=== PATIENT | male | born 1940 | race African-American/Black ===

== ENCOUNTER 2016-11-02 16:50 | Observation (INO) | payer MEDICARE, OTHER ==
[~2016-11-02] VITALS: Ht 170.2 cm; Wt 75.6 kg
[~2016-11-02 16:50] MED LIST: ATOR80TA PO; CHOL200047 PO; FLUT9.9S NS; HYDR-3825 PO; HYG25 PO; LOSA50TA37 PO; METO50TA3 PO; NITR0.4T SL; OMEP20TA86 PO; OXYC10TA8 PO; POTA10CA42 PO; PROC-4 PO; WARF1TAB6 PO; WARF4TAB6 PO
--- NOTE | 2016-11-02 17:05 | NUR ---
Admission Pt admitted to [facility] rm 3012, directly from [facility] by wheelchair. Pt is A/Ox3. No complains of pain, chest discomfrt, N/V, lightheaded or dizzy. Pt has home infusion pump infusing 5FU continuously x 46 hrs, in R upper chest port, all lines are open and are to remain so. Pt able to transfer self to from to to bed, SBA for safety. Oriented to room and call light.
[2016-11-02 18:10] VITALS: BP 165/90; PULSE 64; RESP 18; O2SAT 100
[2016-11-02] MEDS ORDERED: Polyethylene Glycol (PEG) 17 Gm Powder PO PRN (18:50)
[2016-11-02] MEDS ORDERED: Alum-Mag Hydrox-Simeth 30 mL Suspension PO PRN (18:50)
[2016-11-02] MEDS ORDERED: Ondansetron 2 mg/mL 2 mL Inj IVPUSH PRN (18:50)
--- NOTE | 2016-11-02 19:09 | PCM.HPMED ---
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 He is a patient of Dr. Calvin's who is in the office to get chemotherapy today and had a bright red bowel movement. I was called for direct admission. Patient was stable according to Dr. Calvin. He also requested that I contact general surgery regarding consultation on this patient. Which I did do and it was Dr. Erwin. Per oncology his hematocrits earlier in the day was 12 and repeat after his bloody bowel movement was 10.8. Patient denies any abdominal pain. He denies any chest pain shortness of breath or lightheadedness. He has been treated with FOLFIRI with Avastin that he had disease progression and was started standard dose of the irinotecan. And taken did have his CEA come down from 722 07/31/2020 but is now starting to increase again. Review of Systems: All other review of systems are reviewed and are negative except for as in history of present illness Allergies Coded Allergies: hydrocortisone (Verified Allergy, Intermediate, rash when injected, 05/27/15 ) pramoxine (Verified Allergy, Intermediate, rash when injected, 05/27/15) Home Medications Pending at the time of this dictation [facility] Metastatic colon cancer History of colonic resection approximately 2 years ago for cancer Family History Reviewed and negative for cardiovascular disease Social History Hx Alcohol Use: No Hx Substance Use: No Hx Tobacco Use: Yes Smoking Status: Never Smoker Living Arrangement: with Family Exam Vital Signs Vital Sign - Last Date Time Temp Pulse Resp B/P Pulse Ox O2 Delivery O2 Flow Rate FiO2 11/02/16 18:10 36.4 64 18 165/90 100 Room Air Exam Constitutional: Elderly male in no acute distress Head: Normocephalic atraumatic Neck: No adenopathy Chest: Clear to auscultation Cor: Regular rate and rhythm S1-S2 Abdomen: Soft nontender bowel sounds present Extremities: No pedal edema Skin: No rashes Psych: Mood and affect are appropriate Neuro: Alert and oriented 3, motor and sensory are intact bilaterally Assessment & Plan # Episode of hematochezia, acute, present on admission Gen. surgery notified as requested by Dr. Calvin Check serial hematocrits IV fluid hydration # Metastatic colon cancer, chronic, present on admission Further recommendations per oncology # DVT prophylaxis We will use SCDs and avoid subcutaneous anticoagulation given possible GI bleed lower # CODE STATUS patient is full code Resuscitation Status: CPR: Attempt Resuscitation Time spent 60 minutes Tamar Main MD Nov 02, 2016 19:09
[2016-11-02] MEDS ORDERED: OXYC5TAB72 PO (20:18)
[2016-11-02] MEDS ORDERED: METO-272 PO (20:18)
[2016-11-02] MEDS ORDERED: OXYC10TA69 PO (20:18)
[2016-11-02 22:22] VITALS: BP 171/87; PULSE 72; RESP 16; O2SAT 99
[2016-11-03] VITALS (10 sets, daily range): BP systolic 110–173; BP diastolic 65–88; PULSE 52–75; RESP 16–18; O2SAT 95–100
[2016-11-03] MEDS: 0.9% Sodium Chloride 1,000 ML IV SCH ×5 (01:21→18:39)
--- NOTE | 2016-11-03 05:24 | NUR ---
Uneventful Night: Pt rested through the night with no complaints of pain or discomfort. Pt did not have a BM. Denies n/v at this time. Call light within reach, using appropriately. Pleasant and cooperative with care.
[2016-11-03 06:20] LABS: BASOPHILS % (AUTO) 0.4 % (0-3); EOSINOPHILS % (AUTO) 0 % (0-5); MONOCYTES % (AUTO) 23.5 % (4-12); Mean Corpuscular Volume 84.8 fL (81-100); NEUTROPHILS % (AUTO) 51.5 % (40-74); Platelet Count 181 bil/L (150-400)
[2016-11-03 14:01] LABS: APPEARANCE,URINE HAZY (CLEAR,HAZY); COLOR,URINE YELLOW (YELLOW); OCCULT BLOOD,URINE TRACE (NEGATIVE); PH,URINE 7.5 (5.0-8.0)
[2016-11-03] MEDS ORDERED: Sodium Biphos-Phos 133 mL Enema RECTAL ONE ×2 (14:30→15:00)
--- NOTE | 2016-11-03 15:26 | NUR ---
NUTRITION ASSESSMENT: ASSESS: 76 YO male admitted for GI bleed. Pt with metastatic colorectal cancer with liver metastases and small lung lesions currently on chemo. Pt had colon resection approx. 2 years ago. PMHx: Metastatic colorectal cancer with liver metastases and small lung lesions currently on chemo. LABS: Reviewed. Cr 0.60, Alb 2.8, Alk Phos 444 MEDS: Reviewed. GI: No BM reported yet. CURRENT WT: 75 kg. DIET: NPO EST. NEEDS: 6944-7326 kcals (25-30 kcals/kg BW), 90-115 g protein (1.2-1.5 g/kg BW) NUTRITION DIAGNOSIS: 1.) Altered GI function related to alteration in GI tract structure/function as evidenced by previous colon resection and current GI bleed. NUTRITION INTERVENTION: 1.)Will continue to await timely advancement of diet. MONITOR / EVAL: Diet advancement / tolerance, labs, nutritional status. Follow per moderate nutritional risk guidelines.
--- NOTE | 2016-11-03 15:55 | NUR ---
Social Work: Brief Note Data: Pt is a 76 y/o male admitted for colon cancer. Pt's PCP is [facility]. Pt's insurance is Medicare with [employer] for life supp. EMR reviewed. PANEL MONITOR attempted to meet with pt, pt meeting with nursing staff, not appropriate for assessment at this time. PANEL MONITOR will attempt initial assessment at a later time. PANEL MONITOR will continue to follow. Assessment: Pt who is independent at baseline. Plan: PANEL MONITOR will attempt initial assessment at a later time. PANEL MONITOR will continue to follow. ARLET Gallardo
--- NOTE | 2016-11-03 16:38 | PCM.PNMED ---
Subjective Date of Service Nov 03, 2016 Subjective denies any new issues/complaints. no n/v. Exam Vital Signs Vital Sign - Last Date Time Temp Pulse Resp B/P Pulse Ox O2 Delivery O2 Flow Rate FiO2 11/03/16 14:31 36.9 60 18 159/84 99 Room Air Intake and Output 11/02/16 11/02/16 11/03/16 Cumulative From/Thru 15:00 23:00 07:00 11/02/16 18:09 - 11/03/16 06:21 Intake Total 988 ml 988 ml Output Total 300 ml 300 ml Balance 688 ml 688 ml Intake Oral 0 ml 0 ml IV Total 988 ml 988 ml Output Urine Total 300 ml 300 ml General: Alert, Cooperative, No Acute Distress Head: Normal Eyes: Scleral Anicteric Mouth: Mucous Membr Moist/Elliott Neck: Supple Chest & Lungs: Chest Wall Normal, Clear to auscultation & percussion Cardiovascular: Regular Rate/Rhythm Abdomen: Non-tender, Non-distended, Normoactive bowel tones, Soft Extremities: No cyanosis/clubbing/edma bilat Neurological: Grossly Neurologically Intact, Normal Speech IVs and Medications Medications Reviewed: Medications were reviewed in detail Lab and Diagnostics Result Diagram: 11/03/16 0550 11/03/16 0758 Assessment & Plan 76 year old male with 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 Rico) and per recommendation have now consulted GI. will f/u w/ recs - h/h remaining stable since admission - continue to check serial hematocrits for now. # Metastatic colon cancer, chronic, present on admission - will f/u w/ further recommendations per oncology # Atrial flutter (chronic) s/p pacemaker placement. rate controlled - f/u on tele # Essential Hypertension, chronic. poorly controlled - resume home BP meds and f/u Dispo: 1-2 days VTE Mechanical Devices: Intermittant Pneumatic CD Resuscitation Status: CPR: Attempt Resuscitation Time spent 35 min Freddie England Nov 03, 2016 16:38
[2016-11-03] MEDS ORDERED: HYDROcodone-APAP 7.5-325 mg Tablet PO PRN (16:45)
--- NOTE | 2016-11-03 17:05 | NUR ---
Case Management: KENA explained to patient at 1610, all questions answered. Signed original in chart, copy given to patient. Pt refused the Medicare Drug information sheet. Treva Reeves RN
[2016-11-03] MEDS ORDERED: fentaNYL-PF 50 mCg/mL 2 mL Inj IVPUSH PRN (17:30)
--- NOTE | 2016-11-03 18:03 | NUR ---
spiritual care: pt request conversational visit. pt awaiting surgery. connected to [facility]. briefly reflected on his sense of relief that "this was caught and there's a plan" pt's dtr in room. pt appreciative of spiritual care/prayer.
--- NOTE | 2016-11-03 18:27 | NUR ---
Endoscopy He went to endoscopy from [facility] 3012 about 182. Prior to him going he received to enemas per Dr. Del Castillo's orders. He transferred with stand by assist from the bed to the [facility]. IV saline locked. Report given to Haider from Endoscopy. geothermal hvac technician notified.
--- NOTE | 2016-11-03 18:46 | CCS NOTE ---
[facility] [address], [address] [address] MEDICAL ONCOLOGY OFFICE NOTE PATIENT: BLANKA NUÑEZ : 1940 MR#: [id number] DATE: 11/02/2016 JOB ID: [id number] DATE: 11/03/2016 HISTORY OF PRESENT ILLNESS: The patient was admitted to our clinical yesterday. For further details, please refer to my office note as well as the addendum note of yesterday. He was receiving his next cycle of chemotherapy and during the infusion had a fairly large size of hematochezia in the bathroom and was admitted for observation and evaluation because of the size of the bright red blood loss as well as drop of hemoglobin. He is currently not on anticoagulation. Further details summarized in my notes of yesterday. His infusional 5-FU that runs over a continuous pump for 48 hours is ongoing and was started yesterday early afternoon. He has had another episode of hematochezia apparently in the hospital. His hemoglobin, however, has not much changed and has remained around 10.5. White count is 2.9, hemoglobin 10.6, platelets 181. Chemistry shows no significant abnormalities. EXAMINATION: On exam, his abdomen is soft. No peripheral edema. ASSESSMENT: A 76-year-old gentleman admitted through our clinic yesterday because of hematochezia. Further details are summarized in my office note and addendum note of yesterday. I spoke with Dr. Rico of Surgery. I suspect that the reason of his bleeding is likely for nonmalignant causes such as hemorrhoids or diverticula, but endoscopic evaluation is needed. Dr. Rico preferred Gastroenterology to perform the endoscopy and has contacted GI accordingly. In fact, the patient is scheduled to have endoscopic evaluation later this evening and has had some enemas. He has ongoing 5-FU infusional pump that was started yesterday early afternoon as part of his current cycle of chemotherapy and runs over approximately 48 hours which will go until tomorrow afternoon. The pump can be then removed. Usually this is performed through [facility] that takes care of it as an outpatient at the patient's home. With any questions, do not hesitate to contact our pharmacist at the Cancer Center for further directions. He can continue the 5-FU until the pump has completed. He was scheduled to receive Neupogen injection on Tuesday as an outpatient which can be given here if he is still in the hospital. I appreciate Surgery and Gastroenterology support in his care as well as the hospitalist team.
[2016-11-03] MEDS: oxyCODONE ER 10 mg ER12 Tablet PO SCH (21:13)
[2016-11-03] MEDS: MeTOProlol XL 50 mg ER24 Tablet PO SCH (21:13)
--- NOTE | 2016-11-03 22:55 | CONS ---
[address] [address] CONSULTATION REPORT PATIENT: BLANKA NUÑEZ : 1940 MR#: [id number] ADMIT: 11/02/2016 JOB ID: [id number] DATE OF SERVICE: 11/03/2016 REQUESTING PROVIDER: Freddie England MD REASON FOR CONSULTATION: Hematochezia. HISTORY OF PRESENT ILLNESS: This is a 76-year-old male with metastatic colon cancer on active chemotherapy who experienced an episode of bright red blood per rectum yesterday. This was moderate volume and he was sent to the hospital for further evaluation. It sounds like he had been dealing with some constipation up until that point which was relatively new for him. His last colonoscopy was by Dr. Reyes in 2014 and I reviewed that report. ALLERGIES: 1. HYDROCORTISONE. 2. PRAMOXINE. MEDICATIONS: The patient is takin. Atorvastatin. 2. Losartan. 3. Metoprolol. 4. P.r.n. nitro. 5. Vicodin. 6. Scheduled oxycodone. 7. Potassium chloride. 8. Chlorthalidone. 9. Flonase. 10. Compazine. 11. Vitamin D3. He has not been on his Coumadin since mid September. PAST MEDICAL HISTORY: Metastatic colon cancer with a resection in 2013, hyperlipidemia and hypertension. FAMILY HISTORY: Noncontributory. SOCIAL HISTORY: He is not using alcohol at present. REVIEW OF SYSTEMS: Patient was given a couple of Fleets enemas this afternoon in advance of the procedure. He had a small amount of blood with the first one and then no evidence of any blood with the second enema. PHYSICAL EXAMINATION: Vital signs are stable. Blood pressure a little bit elevated this afternoon 159/84, pulse 60, breathing 18, temperature 36.9, 99% on room air. The patient was in no distress. Alert, oriented, appropriate, cooperative, conversational. Lungs are clear bilaterally. Heart regular. No significant peripheral edema. Abdomen was soft, nontender. LABORATORY DATA: Hemoglobin was 10.6 yesterday. It has remained stable. White count is 2.9 with 51.5% neutrophils. Platelets were 181. Metabolic panel reveals albumin 2.8, protein 7.3, alk phos 444, ALT 39, AST 61, bilirubin 1.1, calcium 9.0, glucose 77, creatinine 0.6. Sodium 139, potassium 4.6, chloride 100, bicarb 24, BUN 17. ASSESSMENT AND RECOMMENDATION: A 76-year-old male with an acute episode of bright red blood per rectum. This occurred in the context of more recent constipation and has since resolved. He has not had a significant decrease in his hemoglobin over the course of admission. It sounds like he was evaluated by Dr. Rico, but I have not seen the note on that score. A hemorrhoidal source is certainly suspected. Flexible sigmoidoscopy was discussed with the patient. The risks of the procedure were reviewed. He wished to proceed. Please see the endoscopy note for further details.
--- NOTE | 2016-11-03 23:30 | ENDO ---
[address] [address] ENDOSCOPY PROCEDURE PATIENT: BLANKA NUÑEZ : 1940 MR#: [id number] ADMIT: 11/02/2016 JOB ID: [id number] DATE: 11/03/2016 PROCEDURE: Colonoscopy. INDICATIONS: A 76-year-old male with chronically elevated CEA and metastatic colon cancer status post right hemicolectomy. Colonoscopy is up to date as of 2014. He had a recent episode of bright red blood, moderate volume, following an element of constipation. The bleeding appears to have had spontaneously ceased. Endoscopic interrogation is pursued. EQUIPMENT: Parsely 180 AL. SEDATION: None. BOWEL PREPARATION: Acceptable. PROCEDURE INFORMATION: After the risks and benefits were explained, written and verbal informed consent was obtained. The patient was brought into the endoscopy suite and placed into the left lateral decubitus position. The patient elected to pursue the procedure without sedation. Digital rectal examination was accomplished. There was no evidence of any external hemorrhoids. I could palpate internal hemorrhoids. These were nonthrombosed and not painful. The scope was introduced into the rectum and advanced under direct visualization all the way to the right hemicolectomy anastomosis. The scope was slowly withdrawn to carefully examine the mucosa for any defects or lesions. Multiple direct views were made through the dentate line for exclusion of pathology. The colon was decompressed, the scope removed from the patient who tolerated the procedure quite well. FINDINGS: When we 1st arrived in the rectum, there was a small blood clot just proximal to the dentate line. I initially thought this was the source, but then it simply irrigated away with a single spray, and I did not see any obvious source of blood loss in the rectal mucosa. Throughout the colonic mucosa, I did not appreciate any significant polyps or mass lesions, no vascular pathology, no macroscopic colitis. The anastomosis had some brown and green retained stool debris. The patient had a surprisingly decent prep considering he only had two enemas this afternoon. There was a small amount of green stool debris that was mostly liquid easily suctioned during the procedure. When we arrived back in the rectum at the end of the case, we had a better look at the hemorrhoids and they were indeed moderately to fully engorged with some overlying erythema and slight vascularity in places. However, I did not see an obvious platelet plug or nipple sign. I could not see the obvious bleeding focus of recent bleeding but based on the size of these hemorrhoids, I suspect them to be the culprit. ENDOSCOPIC DIAGNOSES: 1. No evidence of any ongoing active gastrointestinal bleeding. 2. Large, engorged internal hemorrhoids. 3. Normal-appearing right hemicolectomy anastomosis. RECOMMENDATIONS: 1. The patient is encouraged to utilize a regular fiber supplement to keep stool soft and allow him to maintain daily full evacuation. I typically recommend 2 tablespoons of ground flaxseed fiber mixed with 8 ounces of water or juice once or twice daily. I have additionally recommended he engage in some warm Epsom salt baths each evening perhaps this whole week. 2. Should recurrent bleeding occur in spite of conservative therapy, he may require surgical intervention by Dr. Rico for banding.
--- NOTE | 2016-11-03 23:42 | NUR ---
Back on Unit Pt returned from Endo. VSS. Pt requested Jello and chicken broth, tolerated. Pt in bed resting with eyes closed. Will continue to monitor.
[2016-11-04 01:03] VITALS: BP 153/83; PULSE 66; RESP 18; O2SAT 97
[2016-11-04 08:00] VITALS: PULSE 87
[2016-11-04 08:04] LABS: Mean Corpuscular Hemoglobin 27.7 pg (27.0-35.0); Mean Corpuscular Volume 84.3 fL (81-100)
--- NOTE | 2016-11-04 09:07 | NUR ---
Social Work: Initial Assessment Data: Pt is a 76 y/o male admitted for colon cancer. Pt's PCP is [facility]. Pt's Insurance is Medicare with for life supp. Readmit score not listed. EMR reviewed. STRATEGIC BUSINESS DEVELOPMENT met with pt at bedside, role explained. Pt states that he lives in [place] in a two story home with his where he uses no DME. Pt states he has no hx of HH or SNF, no LTC or VA benefits, and is not a caregiver. Pt states his is his DPOA, STRATEGIC BUSINESS DEVELOPMENT requested a copy for hospital. STRATEGIC BUSINESS DEVELOPMENT will continue to follow for possible HH or SNF need. Assessment: Pt who is independent at baseline. Plan: Pt will likely d/c home, possibly with HH, STRATEGIC BUSINESS DEVELOPMENT will continue to follow for possible HH or SNF need. ARLET rojo continue to follow. ARLET Gallardo Addendum: 11/04/16 at 0910 by KIESHA DUTTON Amended: Links added.
[2016-11-04] MEDS: oxyCODONE ER 10 mg ER12 Tablet PO SCH (09:26)
[2016-11-04 09:44] VITALS: BP 136/80; PULSE 67; RESP 21; O2SAT 100
[2016-11-04] MEDS ORDERED: Potassium Chloride 20 mEq SR Tablet PO ONE (10:10)
--- NOTE | 2016-11-04 10:42 | NUR ---
Social Work: Discharge Data: Pt is on day 2 of hospitalization. EMR reviewed. Pt discussed in rounds. MD states pt has no HH need at this time. D/C orders are in. No further d/c planning needs anticipated at this time. Assessment: Pt who is independent at baseline. Plan: Pt will d/c home today via POV. No further d/c planning needs anticipated at this time. ARLET Gallardo
--- NOTE | 2016-11-04 11:48 | PCM.DIMED ---
Discharge Instructions Date of Service Nov 04, 2016 Dates of Hospitalization Nov 02, 2016 at 17:25 Discharge Diagnosis Discharge Diagnosis # Acute hematochezia, present on admission. Resolved - Likely due to "large, engorged internal hemorrhoids" noted on endoscopy # Metastatic colon cancer, chronic, present on admission. # Atrial flutter (chronic) post pacemaker placement. rate controlled # Essential Hypertension, chronic. Diet Low fat, Low Sodium, Heart Healthy Activity No restrictions Call your provider Fever or Chills, Shortness of breath, Bleeding, Chest pain Patient Instructions Seek immediate medical attention if any new or worsening signs or symptoms occur. Utilize a regular fiber supplement to keep stool soft and allow to maintain daily full evacuation. - Recommend 2 tablespoons of ground flaxseed fiber mixed with 8 ounces of water or juice once or twice daily. - Warm Epsom salt baths each evening perhaps this whole week. Should recurrent bleeding occur in spite of conservative therapy, may require surgical intervention for banding. Follow-up plan 1. Followup with oncology (Dr. Calvin) tomorrow as previously planned 2. Followup with primary care provider in 7-10 days Follow-up Provider: Quintin Weston MD Provider: [facility] Freddie Brand Nov 04, 2016 11:48
[2016-11-04] MEDS ORDERED: 0.9% Sodium Chloride 250 ML IV SCH (12:13)
[2016-11-04] MEDS ORDERED: Sodium Chloride LOK Flush 10 mL Syringe IVFLUSH PRN ×2 (12:15)
[2016-11-04] MEDS: MeTOProlol XL 50 mg ER24 Tablet PO SCH (12:24)
--- NOTE | 2016-11-04 13:00 | NUR ---
pt discharged home with daughter. No rectal bleeding today. VSS. Will have follow up with PCP and surgeon only as needed. no new RX.
--- NOTE | 2016-11-04 19:50 | PCM.DC.MED ---
Discharge Summary Date of Service Nov 04, 2016 Dates of Hospitalization Date of Hospital Admission Nov 02, 2016 at 17:25 Date of Discharge: Nov 04, 2016 Providers: Admitting Physician: Tamar Main MD Primary Care Physician: Juan Tavarez Attending Physician: Tamar Main MD Diagnosis at Time of Discharge Diagnosis at Time of Discharge # Acute hematochezia, present on admission. Resolved - Likely due to "large, engorged internal hemorrhoids" noted on endoscopy # Metastatic colon cancer, chronic, present on admission. # Atrial flutter (chronic) post pacemaker placement. rate controlled # Essential Hypertension, chronic. Consultations 1. Surgery 2. GI 3. Oncology Procedures Invasive Procedures DATE: 11/03/2016 PROCEDURE: Colonoscopy. INDICATIONS: A 76-year-old male with chronically elevated CEA and metastatic colon cancer status post right hemicolectomy. Colonoscopy is up to date as of 2014. He had a recent episode of bright red blood, moderate volume, following an element of constipation. The bleeding appears to have had spontaneously ceased. Endoscopic interrogation is pursued. EQUIPMENT: [employer] H [address] [place]. SEDATION: None. BOWEL PREPARATION: Acceptable. PROCEDURE INFORMATION: After the risks and benefits were explained, written and verbal informed consent was obtained. The patient was brought into the endoscopy suite and placed into the left lateral decubitus position. The patient elected to pursue the procedure without sedation. Digital rectal examination was accomplished. There was no evidence of any external hemorrhoids. I could palpate internal hemorrhoids. These were nonthrombosed and not painful. The scope was introduced into the rectum and advanced under direct visualization all the way to the right hemicolectomy anastomosis. The scope was slowly withdrawn to carefully examine the mucosa for any defects or lesions. Multiple direct views were made through the dentate line for exclusion of pathology. The colon was decompressed, the scope removed from the patient who tolerated the procedure quite well. FINDINGS: When we 1st arrived in the rectum, there was a small blood clot just proximal to the dentate line. I initially thought this was the source, but then it simply irrigated away with a single spray, and I did not see any obvious source of blood loss in the rectal mucosa. Throughout the colonic mucosa, I did not appreciate any significant polyps or mass lesions, no vascular pathology, no macroscopic colitis. The anastomosis had some brown and green retained stool debris. The patient had a surprisingly decent prep considering he only had two enemas this afternoon. There was a small amount of green stool debris that was mostly liquid easily suctioned during the procedure. When we arrived back in the rectum at the end of the case, we had a better look at the hemorrhoids and they were indeed moderately to fully engorged with some overlying erythema and slight vascularity in places. However, I did not see an obvious platelet plug or nipple sign. I could not see the obvious bleeding focus of recent bleeding but based on the size of these hemorrhoids, I suspect them to be the culprit. ENDOSCOPIC DIAGNOSES: 1. No evidence of any ongoing active gastrointestinal bleeding. 2. Large, engorged internal hemorrhoids. 3. Normal-appearing right hemicolectomy anastomosis. RECOMMENDATIONS: 1. The patient is encouraged to utilize a regular fiber supplement to keep stool soft and allow him to maintain daily full evacuation. I typically recommend 2 tablespoons of ground flaxseed fiber mixed with 8 ounces of water or juice once or twice daily. I have additionally recommended he engage in some warm Epsom salt baths each evening perhaps this whole week. 2. Should recurrent bleeding occur in spite of conservative therapy, he may require surgical intervention by Dr. Rico for banding. Rob Del Castillo MD 11/03/16 3832 Report status: Draft Transcribed by: RENETTA 11/03/16 2153 REPORT#: [id number] cc: [facility] ; Quintin Calvin MD; Andres Rico MD; oRb Del Castillo MD Brief History As noted in H&P by Dr. Main: Is a 76-year-old male who has a history of metastatic KRAS mutation positive colorectal carcinoma with liver metastases and small lung lesions are so. He is a patient of Dr. Calvin's who is in the office to get chemotherapy today and had a bright red bowel movement. I was called for direct admission. Patient was stable according to Dr. Cavlin. He also requested that I contact general surgery regarding consultation on this patient. Which I did do and it was Dr. Erwin. Per oncology his hematocrits earlier in the day was 12 and repeat after his bloody bowel movement was 10.8. Patient denies any abdominal pain. He denies any chest pain shortness of breath or lightheadedness. He has been treated with FOLFIRI with Avastin that he had disease progression and was started standard dose of the irinotecan. And taken did have his CEA come down from 722 07/31/2020 but is now starting to increase again. Hospital Course # Acute hematochezia, present on admission. Resolved - Likely due to "large, engorged internal hemorrhoids" noted on endoscopy - discussed with surgery (Dr. Rico) and per recommendation consulted GI. - coloscopy on 11/03/16 - h/h remaining stable since admission - per GI recs c/w conservative care and if reoccur f/u w/ surgery for possible banding # Metastatic colon cancer, chronic, present on admission - will f/u w/ further recommendations per oncology # Atrial flutter (chronic) s/p pacemaker placement. rate controlled # Essential Hypertension, chronic. poorly controlled - resume home BP meds by day of d/c abdomen soft, nt, nd, +bs Exam Vital Signs (Last) Date Time Temp Pulse Resp B/P Pulse Ox O2 Delivery O2 Flow Rate FiO2 11/04/16 09:44 36.8 67 21 136/80 100 Room Air Test 11/03/16 05:50 11/03/16 13:18 11/04/16 07:10 Neutrophils (%) (Auto) 51.5% (40-74) Lymphocytes (%) (Auto) 24.6% (14-46) Monocytes (%) (Auto) 23.5% (4-12) Eosinophils (%) (Auto) 0% (0-5) Basophils (%) (Auto) 0.4% (0-3) Urine Color Yellow (YELLOW) Urine Appearance Hazy (CLEAR,HAZY) Urine pH 7.5 (5.0-8.0) Urine Specific [place] 1.020 (1.003-1.035) Urine Protein Tracemg/dL (NEG,TRACE) Urine Glucose (UA) Negativemg/dL (NEGATIVE) Urine Ketones Negativemg/dL (NEGATIVE) Urine Occult Blood Trace (NEGATIVE) Urine Nitrite Negative (NEGATIVE) Urine Bilirubin Negative (NEGATIVE) Urine Urobilinogen 1.0mg/dL (NORMAL) Urine Leukocyte Esterase Negative (NEGATIVE) Urine RBC 0-2/hpf (0-2) Urine WBC 0-5/hpf (0-5) Urine Epithelial Cells Occasional/hpf (NONE-MOD) Urine Crystals None seen (NONE SEEN) Urine Bacteria Few/hpf (NONE-FEW) Urine Hyaline Casts None/lpf (NONE) Urine Granular Casts None seen (NONE SEEN) Urine Waxy Casts None seen (NONE SEEN) Urine Red Blood Cell Casts None seen (NONE SEEN) Urine White Blood Cell Casts None seen (NONE SEEN) Urine Mucus Present (None Seen) Urine Trichomonas None seen (NONE SEEN) Urine Yeast None (NONE SEEN) Urinalysis Comment None White Blood Count 2.5th/mm3 (3.8-10.1) Red Blood Count 3.43mil/mm3 (4.40-5.80) Hemoglobin 9.5g/dL (13.8-17.2) Hematocrit 28.9% (41.0-50.0) Mean Corpuscular Volume 84.3fL (81-100) Mean Corpuscular Hemoglobin 27.7pg (27.0-35.0) Mean Corpuscular Hemoglobin Concent 32.9% (32.0-37.0) Red Cell Distribution Width 16.3% (12.3-15.4) Platelet Count 202bil/L (150-400) Sodium Level 137mEq/L (134-144) Potassium Level 3.4mEq/L (3.5-5.2) Chloride Level 98mEq/L (97-108) Carbon Dioxide Level 23mmol/L (18-29) Blood Urea Nitrogen 20mg/dL (8-27) Creatinine 0.73mg/dL (0.76-1.27) Estimat Glomerular Filtration Rate 110mL/min (>59) Glucose Level 81mg/dL (60-99) Calcium Level 8.6mg/dL (8.5-10.1) Total Bilirubin 1.9mg/dL (0.0-1.2) Aspartate Amino Transf (AST/SGOT) 72U/L (0-50) Alanine Aminotransferase (ALT/SGPT) 45U/L (0-44) Alkaline Phosphatase 472U/L (25-160) Total Protein 6.7g/dL (6.4-8.4) Albumin 3.0g/dL (3.4-5.0) Discharge Medications Discharge Medications Atorvastatin (Lipitor) 80 Mg Tablet 80 MG PO DAILY (Reported) Chlorthalidone (Chlorthalidone) 25 Mg Tablet 25 MG PO DAILY (Reported) Cholecalciferol (Vitamin D3) (Vitamin D3) 2,000 Unit Capsule 2,000 UNIT PO BID ( Reported) Fluticasone Propionate (Flonase Allergy Relief) 50 Mcg/Actuation [place].susp 9.9 ML NS prn (Reported) Losartan Potassium (Losartan Potassium) 50 Mg Tablet 25 MG PO DAILY (Reported) Metoprolol Succinate ER (Metoprolol Succinate ER) 50 Mg Tab.er.24h 75 MG PO BID (Reported) Oxycodone ER (Oxycontin) 10 Mg Tab.er.12h 10 MG PO BID (Reported) Potassium Chloride (Potassium Chloride) 10 Meq Capsule.er 40 MEQ PO DAILY ( Reported) TAKE WITH FOOD As needed Hydrocodone-Acetaminophen 7.5-325 mg (Hydrocodone-Acetaminophen 7.5-325 mg) 1 Each Tablet 1-2 TABLET PO Q6H PRN PRN For Pain (Reported) Nitroglycerin SL (Nitrostat) 0.4 Mg Tab.subl 0.4 MG SL Q5MIN PRN PRN For Chest Pain (Reported) Prochlorperazine Maleate (Compazine) 10 Mg Tablet 10 MG PO Q4 PRN PRN For Nausea (Reported) oxyCODONE (oxyCODONE) 5 Mg Tablet 10 MG PO Q4 PRN PRN For Pain (Reported) Followup Plan Disposition: Home Follow-up plan 1. Followup with oncology (Dr. Calvin) tomorrow as previously planned 2. Followup with primary care provider in 7-10 days Discharge Diet: Low fat, Low Sodium, Heart Healthy Discharge Activity: No restrictions Patient Instructions Seek immediate medical attention if any new or worsening signs or symptoms occur. Utilize a regular fiber supplement to keep stool soft and allow to maintain daily full evacuation. - Recommend 2 tablespoons of ground flaxseed fiber mixed with 8 ounces of water or juice once or twice daily. - Warm Epsom salt baths each evening perhaps this whole week. Should recurrent bleeding occur in spite of conservative therapy, may require surgical intervention for banding. Follow-up Provider: Quintin Weston MD Provider: JUAN TAVAREZ Time spent 35 min copies to: JUAN TAVAREZ; Quintin Weston MDFreddie Nov 04, 2016 19:50
--- NOTE | 2016-11-05 17:44 | CONS ---
[address] [address] CONSULTATION REPORT PATIENT: BLANKA NUÑEZ : 1940 MR#: [id number] ADMIT: 11/02/2016 JOB ID: [id number] DATE OF SERVICE: 11/04/2016 CHIEF COMPLAINT: A 76-year-old gentleman with bleeding, probably from internal hemorrhoids, seen in consultation at the request of Quintin Calvin MD. 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 Milo Appiah in December 2013. Pathology at that time showed a T3 tumor with 1/25 lymph nodes positive for metastatic cancer. He initially received adjuvant chemotherapy with infusional 5-FU alone. Treatment was discontinued after 10 cycles. A year later he developed metastatic disease to the liver and he was treated with SBRT and radioembolization at [facility]. He was being treated under the guidance of Dr. Calvin with FOLFIRI plus Avastin on an attenuated schedule every three weeks. He was getting his treatment on November 02, 2016 when he had bright red blood per rectum in the toilet prompting him to be admitted to the hospital for evaluation and management. Over the last couple of days in the hospital his bleeding has slowed down and stopped, and he had a colonoscopy by Dr. Del Castillo yesterday without any obvious source of bleeding seen other than hemorrhoids. OTHER MEDICAL PROBLEMS: 1. Hyperlipidemia. 2. Hypertension. 3. Coronary artery disease. 4. Chronic atrial fibrillation. PRIOR OPERATIONS: 1. Dual-chamber pacemaker implantation. 2. Right hemicolectomy. 3. Port-A-Cath placement. MEDICATIONS: 1. Atorvastatin. 2. Losartan. 3. Metoprolol. 4. Nitroglycerin. 5. Vicodin. 6. Oxycodone. 7. Potassium chloride. 8. Chlorthalidone. 9. Flonase. 10. Compazine. 11. Vitamin D3. ALLERGIES: 1. Hydrocortisone. 2. Pramoxine. REVIEW OF SYSTEMS: A 10-point review of systems negative other than the pertinent positives noted in the history of present illness and other medical problems. INVESTIGATIONS: Hemoglobin 9.5, down from 10.6 yesterday. Platelet count 202, white blood cell count 2.5. Bilirubin 1.9, AST 72, ALT 45, alkaline phosphatase 472, albumin 3.0. Colonoscopy November 03, 2016 showed no evidence of ongoing bleeding. Large engorged internal hemorrhoids. Normal-appearing right hemicolectomy anastomosis. PHYSICAL EXAMINATION: A 76-year-old gentleman in no acute distress. BMI 26.1, temperature 36.8, pulse 66, blood pressure 153/83, saturating 97% on room air. Eyes: Normal pupils, conjunctivae. Ears, nose, and throat: Normal external appearance. Respiratory: Normal effort, clear to auscultation. Gastrointestinal: Abdomen is soft. Rectal examination deferred. Neurologic: No gross deficits. Psych: Alert, appropriate. Musculoskeletal: Overall appears weak, but no focal weakness. ASSESSMENT AND PLAN: Internal hemorrhoids. I discussed the pathophysiology and treatment rationale for hemorrhoids and offered a banding of hemorrhoids based on symptoms. Discussed the importance of her avoidance of constipation and straining and encouraged him to use senna as needed. I am happy to see him back in clinic based on his symptoms but he and his daughter Treva are comfortable and plan to not intervene at this point and see him back as needed.
[2016-12-14] MEDS ORDERED: WARF4TAB6 PO (09:19)
[2016-12-14] MEDS ORDERED: OXYC10TA69 PO (09:19)
[2017-01-25] MEDS ORDERED: DOCU250C2 PO (08:56)
== END 2016-11-04 13:28 | disposition home or self-care (01) ==
LOC: MPC 17:25
PROVIDERS: ADMIT Specialist; ATTEND Specialist
DX: K64.8 Other hemorrhoids (principal); K92.1 Melena; C18.0 Malignant neoplasm of cecum; C78.7 Secondary malignant neoplasm of liver and intrahepatic bile duct; I10 Essential (primary) hypertension; I25.10 Atherosclerotic heart disease of native coronary artery without angina pectoris; E78.5 Hyperlipidemia, unspecified; I48.2 Chronic atrial fibrillation; Z92.21 Personal history of antineoplastic chemotherapy; Z95.0 Presence of cardiac pacemaker; Z90.49 Acquired absence of other specified parts of digestive tract
CPT/HCPCS: 36415; 45378; 80053; 81001; 82274; 85014; 85018; 85025; 85027; 96374; 99153; G0378; G0379; G0500; J2405; J7030

== ENCOUNTER 2017-02-25 12:55 | Inpatient (IN) | payer MEDICARE, OTHER ==
[~2017-02-25] VITALS: Ht 170.2 cm; Wt 81.0 kg
[~2017-02-25 12:55] MED LIST changes: +DOCU250C2 PO; +METO-272 PO; -METO50TA3 PO; -OMEP20TA86 PO; +OXYC10TA69 PO; -OXYC10TA8 PO; +OXYC5TAB72 PO; -WARF1TAB6 PO
--- NOTE | 2017-02-25 14:20 | NUR ---
Admit from [facility] Admit from Cancer care center r/t ARF. Pt transported via transport BLS service. A&OX4. Denies CP, SOB, Nausea, Pain. Portacath accessed. Belongings in closet. No c/o pain. Pt does not have med list and does not remember his medications off of the top of his head. Care continues
[2017-02-25 14:21] VITALS: BP 153/86; PULSE 66; RESP 18; O2SAT 97
[2017-02-25] MEDS ORDERED: HYDROcodone-APAP 5-325 mg Tablet PO PRN (14:35)
[2017-02-25] MEDS: Lactated Ringer's 1,000 ML IV SCH (14:35)
--- NOTE | 2017-02-25 15:29 | PCM.HPMED ---
Subjective Date of Service Feb 25, 2017 Primary Provider: Admitting Physician: Thom Payne MD Primary Care Physician: Mandeep Abbasi Attending Physician: Thom Payne MD Chief Complaint: Increased creatinine History of Present Illness: 76-year-old male, HTN, HLD, paroxysmal atrial fibrillation on Coumadin, mild cognitive impairment, metastatic colon cancer to the liver and lung, diagnosed 3 years ago in 2013, patient has been managed on palliative chemotherapy by . Pt was on FOLFIRI plus Avastin, but due to dz progression, started on FOLFOX plus Avastin on January 25, 2017, finished 1st cycle. patient has normal kidney function, then patient noted to have REMBERTO, cr1.3 on , chemo was canceled and pt received IVF1.5liters in the clinic. Today, pt came to Oncology clinic, repeat labs showed elevated Cr2.6, sent to hospital for further eval by Other labs notable, Cbc 8.1>11.3/31.2<178, CMP 135,3.7, 103, 22, 30/2.58(19/1.30 on ), [id number], ast/alt 367/100 (153/66 in ) Upon arrival, pt looked comfortable, not a good historian but able to answer questions. stated that he has been eating, drinking well. he developed runny nose a week ago, denied sore throat, cough, sputum. pt also c/o mild fullness on his belly, however, able to eat well, appetite has not bee changed, denied n/ v/c. pt had loose stools since this AM, 3-4times, yellowish, which was different his regular color. pt denied dizziness, thirsty, chest pain, sob, sick contacts. stated that he is always cold. pt took all his meds as he supposed to. currentl lives with . Review of Systems: Pertinent positives as noted in history of present illness. All other systems were reviewed and are negative Allergies Coded Allergies: hydrocortisone (Verified Allergy, Intermediate, rash when injected, 02/25/17 ) pramoxine (Verified Allergy, Intermediate, rash when injected, 02/25/17) Home Medications MEDICATION: 1. Chlorthalidone 25 mg daily. 2. Losartan 25 mg daily. 3. Metoprolol 75 mg b.i.d. 4. Nitroglycerin p.r.n. 5. OxyContin 10 mg b.i.d. 6. Potassium chloride 40 mEq daily. 7. Lipitor 80 mg daily. 8. Warfarin 4 mg daily. PMH HTN paroxysmal atrial fibrillation on Coumadin Social History Hx Alcohol Use: No Hx Substance Use: No Hx Tobacco Use: Yes Smoking Status: Never Smoker Exam Vital Signs Vital Sign - Last Date Time Temp Pulse Resp B/P Pulse Ox O2 Delivery O2 Flow Rate FiO2 02/25/17 14:21 36.4 66 18 153/86 97 Room Air Exam NAD, comfortably laying down on the bed no JVD, MMM, no LAD RRR, nl s1, s2 no mrg CTAB, no w,c S,ND,NT, hyperactive BS+ warm, no edema, pulses 2/2 Assessment & Plan Acute, active REMBERTO, POA, bun/cr ratio<20, no sx,ddx: recent ctx FOLFOX/avastin depite not nephrotoxic per vs prerenal vs BP meds -100cc/hr LR -renal US, check PVR -urine lytes, Na, cr, cl, get FENA, urine EO -UA, UCX mild transaminitis, bilirubinema, POA, likely with underling liver metastasis, mildly worsened from baseline -will get hepatobiliary US as well, -trend hepatic panel, viral hep panel given immunosupressed state loose stools, bloating, POA, abd very benign, will monitor sx for now, stool PCR if sx recur. Chronic, stable metastatic CA, recent dz progression on active palliative Ctx, wosrening CEA, [id number] bid for pain, appreciate management, held Ctx now. HLD continue home statin, get CPK HTN, hold nephrotoxin, losartan, HCTZ for now, continue BB cognitive dysfunction, monitor for now pAfib on Coumadin, continue per pharmacy dispo:Patient will be admitted with inpatient status with expectation of inpatient therapy for more than 2 midnights. dc home without service diet:general dvt ppx:SCD DNR, DNI, pt was interested in having further discussion about GOC, establish the goal, it's unclear how much pt understands given cognitive dysfunction. reportedly pt has daughter oncology nurse at [employer], who is involved in his care. Time spent 65min Thom Payne MD Feb 25, 2017 15:16
[2017-02-25 16:00] VITALS: PULSE 64
[2017-02-25 18:18] LABS: INR 3.66 ratio
[2017-02-25 19:45] LABS: Bilirubin, Direct 1.6 mg/dL (0.0-0.3)
[2017-02-25 20:06] VITALS: BP 143/81; PULSE 72; RESP 20; O2SAT 98
[2017-02-25] MEDS: oxyCODONE ER 10 mg ER12 Tablet PO SCH (20:32)
[2017-02-25 22:16] LABS: APPEARANCE,URINE CLOUDY (CLEAR,HAZY); COLOR,URINE YELLOW (YELLOW)
[2017-02-25 22:17] LABS: OCCULT BLOOD,URINE NEGATIVE (NEGATIVE); PH,URINE 5.5 (5.0-8.0)
[2017-02-26] VITALS (9 sets, daily range): BP systolic 124–157; BP diastolic 73–92; PULSE 62–77; RESP 16–20; O2SAT 93–100
--- NOTE | 2017-02-26 00:03 | NUR ---
BP Medication Patient unable to verify BP medication dosage for evening administration. When reviewing medication with patient, he believes that the dose ordered is too much. Med Rec was not completed on day shift either. Have asked family to bring in medication list so proper med rec can be completed. At 2000 BP 143/81 HR 72. At 0000 BP 136/78 HR 67, Tele reports A flutter 66 V paced. Will continue to monitor and continue Q1 hour checks. Addendum: 02/26/17 at 0014 by FAHAD JARAMILLO RN notified.
--- NOTE | 2017-02-26 00:05 | CCS NOTE ---
[facility] [address], [address] [address] MEDICAL ONCOLOGY OFFICE NOTE PATIENT: BLANKA NUÑEZ : 1940 MR#: [id number] DATE: 02/25/2017 JOB ID: [id number] DATE: 02/25/2017 HISTORY: Patient was seen in hospital room with family and I discussed the reason for admission with his and daughter. For details, please refer to my office notes of earlier today in [facility] that led to the hospitalization. I am hopeful that with hydration and the reduction in the dose of his antihypertensives his kidney function will improve.
[2017-02-26] MEDS: Lactated Ringer's 1,000 ML IV SCH ×3 (00:34→20:57)
[2017-02-26 04:08] LABS: BASOPHILS % (AUTO) 0.3 % (0-3); EOSINOPHILS % (AUTO) 2.1 % (0-5); MONOCYTES % (AUTO) 22.7 % (4-12); Mean Corpuscular Volume 81.5 fL (81-100); NEUTROPHILS % (AUTO) 58.4 % (40-74); Platelet Count 162 bil/L (150-400)
[2017-02-26 04:25] LABS: INR 3.63 ratio
[2017-02-26 04:54] LABS: Magnesium 2.1 mg/dL (1.6-2.6); Phosphorus 3.1 mg/dL (2.5-4.9)
--- NOTE | 2017-02-26 09:16 | NUR ---
DEJUAN signed by pt's daughter
[2017-02-26] MEDS: oxyCODONE ER 10 mg ER12 Tablet PO SCH ×2 (09:24→20:58)
--- NOTE | 2017-02-26 10:05 | PCM.PHAPRO ---
Progress Increased creatinine WARFARIN DOSING: INDICATION: AFIB Home dose 4mg/d Date 2-Giancarlo 3-Giancarlo 4-Giancarlo 5-Giancarlo 6-Giancarlo 7-Giancarlo 8-Giancarlo 9-Giancarlo INR 3.66 3.63 INR change -0.03 Warf Dose HOLD HOLD p/ Continue to hold until INR <3 Odilon Sanders S Pharm D Feb 26, 2017 10:05
--- NOTE | 2017-02-26 10:10 | NUR ---
Evaluation completed. Please go to "Notes" then click on "Assessments and Notes" (bottom left corner of screen). Then select appropriate discipline tab on top of screen.
--- NOTE | 2017-02-26 11:32 | NUR ---
DEJUAN signed by pt's DPOA Treva Guaman.
--- NOTE | 2017-02-26 12:06 | NUR ---
Social Work: Initial Assessment/Readiness for Discharge D: EMR reviewed. Pt is a 76 y/o male admitted for acute renal failure per H&P. HAIM met with pt and daughter/DPOA (Treva Guaman [phone]) at bedside to conduct initial assessment. Pt was alert and oriented x2. Pt was feeling tired and in and out of sleep. Pt gave SW consent to ask daughter/DPOA questions and gave consent to contact daughter for discharge planning. SW explained role and wrote phone number on white board. Pt's insurance is Medicare and [employer]. Pt's PCP is JUAN Arellano. HAIM confirmed pt has completed DPOA/advanced directive ppw and provided a copy to the hospital upon admission. Pt has no Hx of or SNF. Pt has no LTC insurance. Pt has VA benefits and is service connected at [facility]. Pt is independent with ADLs. Pt does not use or own any DME. Pt drives. Pt is independent at baseline. Pt lives in a single-story, level home with his spouse in [place]. As of 02/25, PT recommends pt return home with outpt pt. HAIM confirmed with pt and daughter that pt will schedule outpt pt. Pt's daughter confirmed she will provide pt transport home via POV when pt is medically stable. HAIM does not anticipate any discharge needs at this time but will continue to follow if needs arise. Per MD in AM multi-disciplinary rounds, pt is likely to discharge 02/27. A: Pt who is independent at baseline. P: Pt's daughter confirmed she will provide pt transport home via POV when pt is medically stable. HAIM does not anticipate any discharge needs at this time but will continue to follow if needs arise. ARLET Barreto Addendum: 02/26/17 at 1214 by MARIO DUTTON Amended: Links added.
--- NOTE | 2017-02-26 12:55 | PCM.PNMED ---
Subjective Date of Service Feb 26, 2017 Subjective pt is doing well with IVF, renal function improving but slowly eating well, pleasant this AM, denied any other complaints Exam Vital Signs Vital Sign - Last Date Time Temp Pulse Resp B/P Pulse Ox O2 Delivery O2 Flow Rate FiO2 02/26/17 10:11 67 02/26/17 10:08 16 97 Room Air 02/26/17 09:33 36.3 136/76 Intake and Output 02/25/17 02/25/17 02/26/17 Cumulative From/Thru 15:00 23:00 07:00 02/25/17 14:15 - 02/26/17 06:28 Intake Total 240 ml 1747 ml 1987 ml Output Total 850 ml 850 ml Balance 240 ml 897 ml 1137 ml Intake Oral 240 ml 600 ml 840 ml IV Total 1147 ml 1147 ml Output Urine Total 850 ml 850 ml # Voids 0 3 3 # Bowel Movements 0 0 Exam NAD, comfortably laying down on the bed no JVD, MMM, no LAD RRR, nl s1, s2 no mrg CTAB, no w,c S,ND,NT, hyperactive BS+ warm, no edema, pulses 2/2 IVs and Medications Medications Reviewed: Medications were reviewed in detail Lab and Diagnostics Result Diagram: 02/26/17 0350 02/26/17 0350 Assessment & Plan Acute, active REMBERTO, POA, bun/cr ratio<20, no sx,ddx: recent ctx FOLFOX/avastin despite not nephrotoxic per vs prerenal vs BP meds. UA very unremarkable -improving with IVF, continue 100cc/hr LR -renal US, check PVR -urine lytes, Na, cr, cl, get FENA, urine EO mild transaminitis, bilirubinema, POA, likely with underling liver metastasis, mildly worsened from baseline -will get hepatobiliary US as well, -trend hepatic panel, viral hep panel given immunosupressed state loose stools, bloating, POA, abd very benign, will monitor sx for now, stool PCR if sx recur. Chronic, stable metastatic CA, recent dz progression on active palliative Ctx, wosrening CEA, [id number] bid for pain, appreciate management, held Ctx now. HLD continue home statin, get CPK HTN, hold nephrotoxin, losartan, HCTZ for now, continue BB cognitive dysfunction, monitor for now pAfib on Coumadin, continue per pharmacy dispo:likely 1-2more days, diet:general dvt ppx:SCD DNR, DNI, pt was interested in having further discussion about GOC, establish the goal, it's unclear how much pt understands given cognitive dysfunction. reportedly pt has daughter oncology nurse at [employer], who is involved in his care. [employer] Mechanical Devices: Intermittant Pneumatic CD Time spent 35min Thom Payne MD Feb 26, 2017 12:55
[2017-02-26] MEDS: Ondansetron 2 mg/mL 2 mL Inj IVPUSH PRN (16:54)
[2017-02-26 17:39] LABS: APPEARANCE,URINE TURBID (CLEAR,HAZY); COLOR,URINE YELLOW (YELLOW); OCCULT BLOOD,URINE LARGE (NEGATIVE); UROBILINOGEN,URINE NORMAL (NORMAL)
--- NOTE | 2017-02-26 17:39 | NUR ---
Pain/labs/nausea Patient states no pain when asked but is on scheduled oxycontin bid, kidney functions lab values slowly improving, IV fluids increased per Dr orders. Patient with some nausea this afternoon and was given zofran. Pt up with sba and fww. Patient on Telemetry was afib/flutter paced but converted to SR paced at 1440 today.
--- NOTE | 2017-02-26 17:58 | NUR ---
Telemetry Update: Sinus Rhythm / APACED Patient has been Aflutter and VPACING 60-80s. At 14:40 patient converted to Sinus Rhythm with APACING. RUBEN Atkinson aware.
[2017-02-26] MEDS: 0.9% Sodium Chloride 250 ML IV SCH (18:24)
[2017-02-26] MEDS ORDERED: Sodium Chloride LOK Flush 10 mL Syringe IVFLUSH PRN ×2 (18:25)
[2017-02-26] MEDS ORDERED: HepLOK Flush 100 unit/mL 5 mL Inj IVFLUSH PRN (18:25)
--- NOTE | 2017-02-26 19:54 | CONS ---
[address] [address] CONSULTATION REPORT PATIENT: BLANKA NUÑEZ : 1940 MR#: [id number] ADMIT: 02/25/2017 JOB ID: [id number] DATE OF SERVICE: REQUESTING PHYSICIAN: Dr. Payne. REASON FOR CONSULTATION: Management of abnormal kidney function. CHIEF COMPLAINT: Abnormal kidney blood work. PRESENT ILLNESS: This is a very pleasant, 76-year-old, male with significant past medical history of hypertension, atrial fibrillation, with a long history of Coumadin, dyslipidemia, status post pacemaker placement, and metastatic colon cancer, who was sent to the hospital due to abnormal kidney functions. 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 The patient underwent a right-sided hemicolectomy at that time which revealed a pathologic T3, N1, tumor, with one of 25 lymph nodes positive. The patient underwent adjuvant chemotherapy. Subsequently, he was found to have metastatic lesions in the liver and the lung. He was treated with SBRT and radio embolization at the [facility]. The patient was later on FOLFIRI plus Avastin. Unfortunately, the disease has progressed. Hence, new regimen was started, FOLFOX plus Avastin on January 25, 2017. He finished the 1st cycle. The patient noted to have abnormal serum creatinine on February 15, 2017, with a level of 1.3. Of note, his baseline serum creatinine was less than 1. The repeat serum creatinine was worsened at the level of 2.58. The patient then was told to come to the hospital for IV fluid hydration. The patient has received lactated Ringer's overnight at a rate of 100 cc/hour. His serum creatinine has decreased to 2.37. After the chemotherapy, the patient denied history of nausea, vomiting, or diarrhea. However, he is losing weight and his appetite is poor. He had lost probably at least 10 pounds over the past month or so. Of note, he was taking losartan and chlorthalidone for his blood pressure control. The patient denies using any NSAIDs. He denies history of dysuria or hematuria. PAST MEDICAL HISTORY: Chronic atrial fibrillation, status post pacemaker placement. Hypertension, dyslipidemia, metastatic colon cancer. History of a lower GI bleed with underlying disease of hemorrhoids. PAST SURGICAL HISTORY: 1. Status post Port-A-Cath placement. 2. Status post right hemicolectomy. 3. Status post pacemaker placement. FAMILY HISTORY: No kidney disease in the family. SOCIAL HISTORY: Denies current use of alcohol, tobacco, or illicit drugs. ALLERGIES: 1. HYDROCORTISONE. 2. PRAMOXINE. REVIEW OF SYSTEMS: Fourteen-point review of system was performed. PHYSICAL EXAMINATION: Vitals: Temperature 36.6, pulse 74, respiratory rate 16, blood pressure 128/73, O2 sat 98% on room air. General appearance: Awake, alert, oriented x3. In no acute distress. HEENT: No pallor. No icteric sclerae. No JVD. No lymphadenopathy. No thyroid enlargement. Atraumatic. PERRLA. Dry mucous membrane. Heart: Regular rhythm. Normal S1, S2. No murmurs, rubs, or gallops. Lungs: Clear to auscultation bilaterally. No wheezing. No rhonchi. Abdomen soft, active bowel sounds. Nontender. Nondistended. No hepatosplenomegaly. Extremities: No edema, cyanosis or clubbing of fingers. LABORATORY: WBC 5.7, hemoglobin 11.1. Sodium 139, potassium 3.7, chloride 101, bicarb 20, BUN 29, creatinine 2.37. Calcium 9.0, phosphorus 3.1, magnesium 2.1. Total bilirubin 2.6, AST 80, ALT 90, alkaline phos 830, albumin 2.5. INR 3.63. UA: Specific gravity 1.015, protein 100, RBCs 0-2, WBCs 0-5. Hyaline casts: None. Granular casts: More than 20. ASSESSMENT: 1. Acute kidney injury secondary to prerenal azotemia. Possible with a component of acute tubular necrosis. 2. Metastatic colon cancer. 3. Failure to thrive. 4. Abnormal liver function test. 5. Hypertension. 6. Dyslipidemia. 7. Chronic atrial fibrillation. Per renal standpoint, I would continue aggressive IV hydration. Will increase lactated Ringer to 125 cc/hour. Hold hydrochlorothiazide and losartan. Maintain mean arterial pressure above 65. Repeat UA and check urine protein/creatinine ratio. Pending kidney sonogram. Thank you for allowing me to participate in the care of your patient. We will monitor along. [facility]
--- NOTE | 2017-02-26 23:07 | NUR ---
RECEPTIONIST SCHEDULER; reports: sinus rhythm 66, occasional AA Paced.
[2017-02-27] VITALS (8 sets, daily range): BP systolic 121–167; BP diastolic 68–99; PULSE 62–74; RESP 16–18; O2SAT 93–100
[2017-02-27] MEDS: Lactated Ringer's 1,000 ML IV SCH (04:57)
--- NOTE | 2017-02-27 05:16 | NUR ---
LABS; portacath alyce blood without problems.
[2017-02-27 05:33] LABS: INR 3.05 ratio
[2017-02-27 05:45] LABS: Bilirubin, Direct 1.8 mg/dL (0.0-0.3)
--- NOTE | 2017-02-27 05:55 | NUR ---
PAIN/GI; no c/o pain. On routine pain rx. No c/o nausea or vomiting. Appeared to sleep well during the night.
[2017-02-27] MEDS: oxyCODONE ER 10 mg ER12 Tablet PO SCH ×2 (08:48→20:17)
[2017-02-27 09:09] LABS: Hepatitis A Antibody IgM Negative (Negative); Hepatitis B Core Antibody IgM Negative (Negative)
--- NOTE | 2017-02-27 10:59 | PCM.PNMED ---
Subjective Date of Service Feb 27, 2017 Subjective pt continues to do well with IVF, Cr improving, consulted denied n/v, eating well with good appetite, viral hep panel unremarkable. BP stable off on 2meds Exam Vital Signs Vital Sign - Last Date Time Temp Pulse Resp B/P Pulse Ox O2 Delivery O2 Flow Rate FiO2 02/27/17 08:36 36.7 73 16 167/99 99 Room Air Intake and Output 02/26/17 02/26/17 02/27/17 Cumulative From/Thru 15:00 23:00 07:00 02/25/17 14:15 - 02/27/17 05:50 Intake Total 2321 ml 1700 ml 6008 ml Output Total 950 ml 650 ml 2450 ml Balance 1371 ml 1050 ml 3558 ml Intake Oral 1076 ml 450 ml 2366 ml IV Total 1245 ml 1250 ml 3642 ml Output Urine Total 950 ml 650 ml 2450 ml # Voids 1 4 # Bowel Movements 0 0 0 Exam NAD, comfortably laying down on the bed no JVD, MMM, no LAD RRR, nl s1, s2 no mrg CTAB, no w,c S,ND,NT, hyperactive BS+ warm, no edema, pulses 2/2 IVs and Medications Medications Reviewed: Medications were reviewed in detail Lab and Diagnostics Result Diagram: 02/26/17 0350 02/27/17 0500 Assessment & Plan Acute, active REMBERTO, POA, bun/cr ratio<20, no sx,ddx: recent ctx FOLFOX/avastin despite not nephrotoxic per vs prerenal vs ATN with BP meds. UA very unremarkable -improving with IVF, continue 150cc/hr LR per -renal US, check PVR -appreciate Nephrology follow up mild transaminitis, bilirubinema, POA, likely with underling liver metastasis, mildly worsened from baseline. viral hep panel ngtd -stable, awaits hepatobiliary US result -trend hepatic panel loose stools, bloating, POA, abd very benign, will monitor sx for now, stool PCR if sx recur. Chronic, stable metastatic CA, recent dz progression on active palliative Ctx, wosrening CEA, [id number] bid for pain, appreciate management, held Ctx now. HLD continue home statin, get CPK HTN, hold nephrotoxin, losartan, HCTZ for now, continue BB cognitive dysfunction, monitor for now pAfib on Coumadin, continue per pharmacy dispo:likely tomorrow home diet:general dvt ppx:SCD DNR, DNI, pt was interested in having further discussion about GOC, establish the goal, it's unclear how much pt understands given cognitive dysfunction. reportedly pt has daughter oncology nurse at [place], who is involved in his care. VTE Mechanical Devices: Intermittant Pneumatic CD Time spent 35min Thom Payne MD Feb 27, 2017 09:55
[2017-02-27] MEDS: Potassium Chloride Inj 40 MEQ in 0.9% Sodium Chloride 1,000 ML IV SCH ×2 (11:51→22:24)
--- NOTE | 2017-02-27 14:54 | PCM.PNNEPH ---
Subjective Date of Service Feb 27, 2017 Subjective He is feeling better, no N/V/SOB/CP. His appetite has come back. Serum creatinine trended, 1.99 today. Exam Vital Signs Vital Sign - Last Date Time Temp Pulse Resp B/P Pulse Ox O2 Delivery O2 Flow Rate FiO2 02/27/17 13:10 Room Air 02/27/17 10:03 62 02/27/17 08:36 36.7 16 167/99 99 Intake and Output 02/26/17 02/26/17 02/27/17 Cumulative From/Thru 15:00 23:00 07:00 02/25/17 14:15 - 02/27/17 05:50 Intake Total 2321 ml 1700 ml 6008 ml Output Total 950 ml 650 ml 2450 ml Balance 1371 ml 1050 ml 3558 ml Intake Oral 1076 ml 450 ml 2366 ml IV Total 1245 ml 1250 ml 3642 ml Output Urine Total 950 ml 650 ml 2450 ml # Voids 1 4 # Bowel Movements 0 0 0 Exam General appearance: Awake, alert, oriented x3. In no acute distress. HEENT: No pallor. No icteric sclerae. No JVD. No lymphadenopathy. No thyroid enlargement. Atraumatic. PERRLA. Dry mucous membrane. Heart: Regular rhythm. Normal S1, S2. No murmurs, rubs, or gallops. Lungs: Clear to auscultation bilaterally. No wheezing. No rhonchi. Abdomen soft, active bowel sounds. Nontender. Nondistended. No hepatosplenomegaly. Extremities: No edema, cyanosis or clubbing of fingers. Lab and Diagnostics Result Diagram: 02/26/17 0350 02/27/17 0500 Plan Impression ASSESSMENT: 1. Acute kidney injury secondary to prerenal azotemia. Possible with a component of acute tubular necrosis. (+) Granular cast. 2. Metastatic colon cancer. 3. Proteinuria 3g/g. - Will continue to monitor, concerned of MN in the setting of colon cancer. 4. Abnormal liver function test secondary to liver metastasis. 5. Hypertension. 6. Dyslipidemia. 7. Chronic atrial fibrillation. 8. Hypokalemia. Plan: Hold hydrochlorothiazide and losartan. NS 1000 ml + KCL 40 meq 100 m/hr. Maintain mean arterial pressure above 65. Pending kidney sonogram. Repeat BMP in am. Likely to be d/c'd within 24 hr. Ananthapanyasut,Wanwarat MD Feb 27, 2017 14:54
--- NOTE | 2017-02-27 16:22 | PCM.PHAPRO ---
Progress Increased creatinine 2-Giancarlo 3-Giancarlo 4-Giancarlo 3.66 3.63 3.05 -0.03 -0.58 HOLD HOLD 2 Scotty Ambriz Pharm.D Feb 27, 2017 16:22
[2017-02-27 16:52] LABS: INR 2.7 ratio
--- NOTE | 2017-02-27 17:38 | NUR ---
Labs Pts. potassium was low, see lab results, and potassium chloride 40MEQ in normal saline IV was ordered per MD. IV still infusing Pt. denies pain, SOB, CP and no anxiety at this time. Will continue to monitor.
[2017-02-27] MEDS: 0.9% Sodium Chloride 250 ML IV SCH (18:24)
--- NOTE | 2017-02-28 00:37 | NUR ---
PAIN/; pt c/o pain first part of shift which decreased after scheduled pain rx was given. No c/o nausea or vomiting. Voided x1 hudson urine with tinge of pink lower part of urinal noted. No further pink tinged urine noted this shift.
[2017-02-28 00:50] VITALS: BP 148/78; PULSE 62; RESP 16; O2SAT 96
[2017-02-28 05:57] LABS: INR 2.5 ratio
[2017-02-28 06:08] VITALS: BP 150/69; PULSE 69; RESP 18; O2SAT 95
[2017-02-28 06:20] LABS: Magnesium 1.8 mg/dL (1.6-2.6); Phosphorus 2.2 mg/dL (2.5-4.9)
[2017-02-28] MEDS: oxyCODONE ER 10 mg ER12 Tablet PO SCH ×2 (10:03→21:29)
[2017-02-28 10:29] VITALS: PULSE 65
--- NOTE | 2017-02-28 10:46 | DRSVH ---
PROCEDURE: US ABDOMEN DOPPLER, LIMITED INDICATIONS: transaminitis, liver metastatis from colon TECHNIQUE: Real-time scanning was performed of the abdominal and retroperitoneal organs, with image documentatio n. COMPARISON: [facility], CT, CT CHEST ABD PELVIS W ALLY, 01/24/2017, 10:31. FINDINGS: CBD: 2.90 mm Spleen length: 9.70 cm Right kidney length: 11.04 cm Left kidney length: 10.60 cm Aorta(Proximal): 1.83 cm Aorta(Mid): 1.70 cm Aorta(Distal): 1.55 cm Liver: Right hepatic lobe mass redemonstrated similar to prior examination measuring 5.8 x 6.9 x 6.3 cm. Left hepatic lobe solid mass also similar to prior examination measuring 6.2 x 5.8 x 4.9 cm. Gallbladder: Gallbladder not well-seen. Biliary ducts: Intrahepatic bile ducts are non-dilated. Extrahepatic bile duct caliber is normal. Normal is 6-7 mm or less in diameter, or 10 mm or less post-cholecystectomy. Pancreas: Visualized portions of the pancreas are sonographically normal. Spleen: Spleen is normal in size and homogeneous in echotexture. Kidneys: Kidneys are normal in size and echotexture. No hydronephrosis or nephrolithiasis. No neymar d masses. Right inferior pole kidney cyst measuring 2.1 cm. Aorta: Visualized aorta is normal in caliber at less than 3 cm. Iliacs: Proximal common iliac arteries are normal in caliber at less than 2.5 cm. IVC: Intrahepatic inferior vena cava is patent. Miscellaneous: No free abdominal fluid. IMPRESSION: 1. Hepatic metastasis redemonstrated. 2. Gallbladder not well visualized. 3. Right renal cyst. Dictated by: Joseph ACEVEDO Interpreted: Cy Vasquez MD on 02/28/2017 at 10:43 Transcribed by: ABRAHAN on 02/28/2017 at 10:46 Approved by: Julio Vasquez M.D. on 02/28/2017 at 10:46
--- NOTE | 2017-02-28 11:45 | NUR ---
Social Work: Readiness for Discharge D: EMR reviewed. Pt is on day 3 of hospitalization. Per MD in AM multi-disciplinary rounds, pt is likely to discharge today. Pt's daughter confirmed she will provide pt transport home via POV when pt is medically stable. SW does not anticipate any discharge needs at this time but will continue to follow if needs arise. A: Pt who is independent at baseline. P: Pt's daughter confirmed she will provide pt transport home via POV when pt is medically stable. [facility] does not anticipate any discharge needs at this time but will continue to follow if needs arise. ARLET Barreto
--- NOTE | 2017-02-28 12:56 | NUR ---
Palliative Care Palliative Care received order from Dr Payne 02/25/17 (late Tuesday) to assist with goals of care. Unable to see patient 02/25 due to caseload. Patient is a 76 year old man with metastatic colon cancer. Patient was living at home with his . Azucena Davis () [phone] Treva Guaman (daughter) [phone] Palliative Care will likely sign off today as goals of care are now clear. Yany Roe
[2017-02-28] MEDS: Potassium Chloride Inj 40 MEQ in 0.9% Sodium Chloride 1,000 ML IV SCH ×2 (13:26→16:57)
--- NOTE | 2017-02-28 13:36 | PCM.CONPAL ---
Date of Service Feb 28, 2017 Date of Hospital Admission: Feb 25, 2017 at 14:14 Date of Palliative Consult: Feb 28, 2017 Requesting Provider: Thom Payne MD Reason Palliative Care Consult: Goals of Care Discussion Reason for Consultation Palliative Care received order from Dr Payne 02/25/17 (late Tuesday) to assist with goals of care. Unable to see patient 02/25 due to caseload. Patient is a 76 year old man with metastatic colon cancer. Patient was living at home with his . Azucena Davis () [phone] Treva Guaman (daughter) [phone] Hospital Unit @time of consult: Orthopedic/Surgical Care (room 1006) Palliative Care Recommendation Summary of palliative recommendations: -Symptom management (Pain/other): per Attending -DPOA/Advanced Directives/POLST: 1. Code Status is DNR/DNI 2. DPOA is pt's daughter Treva, . She is in room with pt. Dr. Rose spoke with daughter who states that the patient and family wish to continue palliative chemotherapy per Dr. Calvin's recommendations. The patient and family plan to see Dr. Calvin at outpatient follow-up and will discuss next step in management then. 3. No prior POLST. No POLST completed this admission. -Family/emotional support: good Disposition: Per CM and family. Palliative Care will sign off case as family is not at the point of considering any options other than continuation of palliative chemotherapy Problems: Resuscitation Status Resuscitation Status: DNR/DNI:Do Not Resuscitate/Intubate POLST Updates/Changes Previous POLST?: No Pt History History of Present Illness 76-year-old male, HTN, HLD, paroxysmal atrial fibrillation on Coumadin, mild cognitive impairment, metastatic colon cancer to the liver and lung, diagnosed 3 years ago in 2013, patient has been managed on palliative chemotherapy by . Pt was on FOLFIRI plus Avastin, but due to dz progression, started on FOLFOX plus Avastin on January 25, 2017, finished 1st cycle. patient has normal kidney function, then patient noted to have REMBERTO, cr1.3 on , chemo was canceled and pt received IVF1.5liters in the clinic. Today, pt came to Oncology clinic, repeat labs showed elevated Cr2.6, sent to hospital for further eval by Other labs notable, Cbc 8.1>11.3/31.2<178, CMP 135,3.7, 103, 22, 30/2.58(19/1.30 on ), [id number], ast/alt 367/100 (153/66 in ) Hospital Course: In [facility] ED on 02/25, pt looked comfortable, not a good historian but able to answer questions. He has been eating, drinking well. he developed runny nose a week ago, denied sore throat, cough, sputum. He also c/o mild fullness on his belly, however, able to eat well, appetite has not changed, denied n/v/c, but he had loose stools since this AM, 3-4 times. He denied dizziness, thirsty, chest pain, sob, sick contacts. States he is always cold. Says he takes all his meds as he supposed to. He currently lives with his . Over the weekend, his creatinine has been improving with hydration and Nephrology has seen him and made recommendations. Past Medical History Significant PMH Noted: HTN paroxysmal atrial fibrillation on Coumadin Social History Hx Alcohol Use: No Hx Substance Use: No Hx Tobacco Use: Yes Smoking Status: Never Smoker Allergy Allergies Reviewed: Yes Medications Current Medications: Current Medications Zolpidem Tartrate 5 mg 5 mg HS PRN PO; Start 02/26/17 at 16:25 Sodium Chloride 250 ml @ 10 mls/hr Q24H IV; Start 02/26/17 at 18:24 Potassium Chloride/Sodium Chloride 1,020 ml @ 100 mls/hr [id number] IV Last administered on 02/28/17t 13:26; Admin Dose 100 MLS/HR; Start 02/27/17 at 10:30 Scheduled Atorvastatin (Lipitor) 80 Mg Tablet 80 MG PO DAILY Chlorthalidone (Chlorthalidone) 25 Mg Tablet 25 MG PO DAILY Cholecalciferol (Vitamin D3) (Vitamin D3) 2,000 Unit Capsule 2,000 UNIT PO BID Fluticasone Propionate (Flonase Allergy Relief) 50 Mcg/Actuation Langley.susp 9.9 ML NS prn Losartan Potassium (Losartan Potassium) 50 Mg Tablet 25 MG PO DAILY Metoprolol Succinate ER (Metoprolol Succinate ER) 50 Mg Tab.er.24h 75 MG PO BID Oxycodone ER (Oxycontin) 10 Mg Tab.er.12h 10 MG PO BID Potassium Chloride (Potassium Chloride) 10 Meq Capsule.er 40 MEQ PO DAILY TAKE WITH FOOD Warfarin Sodium (Warfarin Sodium) 4 Mg Tablet 4 MG PO DAILY oxyCODONE (oxyCODONE) 5 Mg Tablet 10 MG PO BID Scheduled PRN Docusate Sodium (Docusate Sodium) 250 Mg Capsule 250 MG PO DAILY PRN PRN For Constipation Hydrocodone-Acetaminophen 7.5-325 mg (Hydrocodone-Acetaminophen 7.5-325 mg) 1 Each Tablet 1-2 TABLET PO Q6H PRN PRN For Pain Nitroglycerin SL (Nitrostat) 0.4 Mg Tab.subl 0.4 MG SL Q5MIN PRN PRN For Chest Pain Prochlorperazine Maleate (Compazine) 10 Mg Tablet 10 MG PO Q4 PRN PRN For Nausea Objective Findings Exam Vital Sign - Last Date Time Temp Pulse Resp B/P Pulse Ox O2 Delivery O2 Flow Rate FiO2 02/28/17 12:07 Room Air 02/28/17 10:29 65 02/28/17 06:08 37.0 18 150/69 95 Intake and Output 02/27/17 02/27/17 02/28/17 Cumulative From/Thru 15:00 23:00 07:00 02/25/17 14:15 - 02/28/17 06:08 Intake Total 2236 ml 1697 ml 9941 ml Output Total 1000 ml 1250 ml 4700 ml Balance 1236 ml 447 ml 5241 ml Intake Oral 1036 ml 850 ml 4252 ml IV Total 1200 ml 847 ml 5689 ml Output Urine Total 1000 ml 1250 ml 4700 ml # Voids 4 # Bowel Movements 0 0 0 General: Alert/Oriented x3 HEENT: Atraumatic, PERRLA, EOMI, Scleral Anicteric Heart: Regular Rate/Rhythm, Normal S1, S2, No Murmurs/Rubs/Gallops Lungs: Clear to Auscultation Abdomen: Benign, Bowel Tones x4, Soft, Non Tender Neuro: Exam Intact Extremities: Warm, No Edema Lab/Diagnostics Lab and Imaging results reviewed in detail in EMR. Time spent Total time 30 minutes; >50% face to face with patient and/or family, providing counselling regarding plans and recommendations, and in care coordination with his/her medical teams. Yadi Rose MD Feb 28, 2017 13:36
--- NOTE | 2017-02-28 13:44 | PCM.PHAPRO ---
Progress Increased creatinine WARFARIN DOSING PER PHARMACY Date 2-Giancarlo 3-Giancarlo 4-Giancarlo 5-Giancarlo INR 3.66 3.63 3.05 2.50 INR change -0.03 -0.58 -0.55 Warf Dose HOLD HOLD 2 4 INR dropped from 3.05 to 2.70 on 02/27 Will give one dose of warfarin 4mg tonight and monitor INR closely, thank you Enid Reyes PharmD Feb 28, 2017 13:44
[2017-02-28 13:46] VITALS: BP 144/77; PULSE 68; RESP 16; O2SAT 96
--- NOTE | 2017-02-28 14:39 | NUR ---
NUTRITION ASSESSMENT: ASSESS: 76YO M admit with acute kidney injury, improving on IV fluids. N/V improved. H/O metastatic colon ca,mets to liver/lungs with noted recent disease progression. Some cognitive dysfunction noted. PMHX: Metastatic colon CA,liver/lungs, palliative chemotherapy,afib,HTN,HLD DIET: General. Good appetite noted. PO 50-75% LABS: Cr 1.68,K+3.4,Glu 136,Ca 8.2,Phos 2.2,Alb 2.1 MEDS: Reviewed GI: 1 BM today WEIGHT: 78.0kg BMI: 26.9 EST.NEEDS: CANCER (25-30kcal/kg;1.0-1.5g/kg pro) Kcal: 6781-1984 Pro: 80-115g NUTRITION DIAGNOSIS: (1) Altered nutrition related laboratory values related to acute kidney injury as evidenced by elevated creatinine. INTERVENTION: (1) Monitor for renal diet needs PRN. MONITOR/EVALUATE: PO intake, GI status, labs, overall POC. F/U per moderate risk.
--- NOTE | 2017-02-28 15:32 | NUR ---
Social Work: Continued Discharge Planning D: EMR reviewed. Pt is on day 3 of hospitalization. PT recommends HH for PT as of 02/28. SW requested SW order from MD via [employer] page. SW to follow-up with pt regarding HH once MD has placed order. A: Pt for whom HH has been deemed medically necessary. P: SW to follow-up with pt for HH once MD order is placed. SW requested MD order via [employer] page 02/28. Daughter to transport pt home when medically stable. ARLET Barreto
--- NOTE | 2017-02-28 16:02 | PCM.PNMED ---
Subjective Date of Service Feb 28, 2017 Subjective Resting comfortable daughter present. No complaints, feeling better. Nephrology would like tofurther hydrate patient and get an ultrasound of kidneys. Creatinine improving. Exam Vital Signs Vital Sign - Last Date Time Temp Pulse Resp B/P Pulse Ox O2 Delivery O2 Flow Rate FiO2 02/28/17 13:46 36.9 68 16 144/77 96 Room Air Intake and Output 02/27/17 02/27/17 02/28/17 Cumulative From/Thru 15:00 23:00 07:00 02/25/17 14:15 - 02/28/17 06:08 Intake Total 2236 ml 1697 ml 9941 ml Output Total 1000 ml 1250 ml 4700 ml Balance 1236 ml 447 ml 5241 ml Intake Oral 1036 ml 850 ml 4252 ml IV Total 1200 ml 847 ml 5689 ml Output Urine Total 1000 ml 1250 ml 4700 ml # Voids 4 # Bowel Movements 0 0 0 Exam Skin; no rash HENT; no active lesion, adequate hydration CV; no murmur or gallop Resp; clear anteriorly GI; soft non acute non tender Lab and Diagnostics Result Diagram: 02/26/17 0350 02/28/17 0525 Assessment & Plan 1. Acute renal failure, poa, improving -bun/cr ratio<20, no sx,ddx: recent ctx FOLFOX/avastin despite not nephrotoxic per vs prerenal vs ATN with BP meds. UA very unremarkable -improving with IVF, continue 100cc/hr LR per -renal US, check PVR -bmp in am 2. mild transaminitis, bilirubinema, POA, stable and chronic -likely due to underling liver metastasis, mildly worsened from baseline. viral hep panel ngtd -stable, awaits hepatobiliary US result Chronic, stable metastatic CA, recent dz progression on active palliative Ctx, wosrening CEA, [id number] bid for pain, appreciate management, held Ctx now. HLD continue home statin, get CPK HTN, hold nephrotoxin, losartan, HCTZ for now, continue BB cognitive dysfunction, monitor for now pAfib on Coumadin, continue per pharmacy dispo:likely tomorrow home diet:general dvt ppx:SCD DNR, DNI, pt was interested in having further discussion about GOC, establish the goal, it's unclear how much pt understands given cognitive dysfunction. reportedly pt has daughter oncology nurse at [place], who is involved in his care. VTE Mechanical Devices: Intermittant Pneumatic CD Resuscitation Status: DNR/DNI:Do Not Resuscitate/Intubate Marvel Lorenzo MD Feb 28, 2017 16:02
[2017-02-28] MEDS: 0.9% Sodium Chloride 250 ML IV SCH (16:57)
--- NOTE | 2017-02-28 18:43 | NUR ---
IV K+ supplement Per RN report, pt hoping to D/C. K+ bag running low. In anticipation of discharge per RN and pt/pt daughter, bag TKO'd At noon, after no word on D/C, went to hang new K+ bag and Portacath flushing with force, but not smooth. Call to IV therapy for troubleshooting. IV therapy later on the unit (~2hrs later) and again requested their assistance. Per IV therapy, needle not fully inserted and so dressing reapplied to keep in place. IV now infusing as ordered for additional K+ supplement. Pt tolerating. Will repeat labs in AM per MD. No acute issues this shift. Care continues.
[2017-02-28 20:22] VITALS: BP 149/94; PULSE 73; RESP 16; O2SAT 97
[2017-02-28] MEDS: Ondansetron 2 mg/mL 2 mL Inj IVPUSH PRN (21:28)
[2017-03-01 00:19] VITALS: PULSE 66
[2017-03-01 02:44] VITALS: BP 154/99; PULSE 82; RESP 18; O2SAT 96
[2017-03-01] MEDS: Potassium Chloride Inj 40 MEQ in 0.9% Sodium Chloride 1,000 ML IV SCH (03:18)
--- NOTE | 2017-03-01 04:25 | NUR ---
Hematuria Pt has voided multiple times this shift with david blood and clots. He has no c/o pain. C/o urgency and o c/o lightheadedness. Bp stable. MD aware IV fluids infusing. Dtr at bedside and assisting in care. Care continues
[2017-03-01 05:04] VITALS: BP 149/91; PULSE 66; RESP 20; O2SAT 96
[2017-03-01 07:01] LABS: INR 2.09 ratio
[2017-03-01] MEDS: oxyCODONE ER 10 mg ER12 Tablet PO SCH (08:10)
--- NOTE | 2017-03-01 09:19 | NUR ---
[facility] Signed @ 208AM
[2017-03-01 09:28] VITALS: BP 104/70; PULSE 73; RESP 16; O2SAT 98
[2017-03-01 10:11] VITALS: PULSE 60
--- NOTE | 2017-03-01 11:03 | PCM.DIMED ---
Discharge Instructions Date of Service Mar 01, 2017 Dates of Hospitalization Feb 25, 2017 at 14:14 Discharge Diagnosis Discharge Diagnosis 1. Acute renal failure, poa, improving 2. mild transaminitis, bilirubinema, POA, stable and chronic 3. metastatic colon cancer, poa, stable 4. HTN,, poa, stable 5. Afib on Coumadin, poa, stable Diet Discharge Diet: Low fat, Low Sodium, Heart Healthy Activity Discharge Activity: Limited until seen by PCP Patient Instructions Follow-up plan Please follow up with your primary care provider at the [facility], please have them repeat the blood test (BMP), to check your potassium and renal function within the next 5-6 days. Also follow up with your oncologist. Follow-up with PCP in: 1 week Marvel Lorenzo MD Mar 01, 2017 11:03
--- NOTE | 2017-03-01 11:09 | PCM.DC.MED ---
Discharge Summary Date of Service Mar 01, 2017 Dates of Hospitalization Date of Hospital Admission Feb 25, 2017 at 14:14 Date of Discharge: Mar 01, 2017 Providers: Admitting Physician: Thom Payne MD Primary Care Physician: Mandeep Abbasi Attending Physician: Thom Payne MD Diagnosis at Time of Discharge Diagnosis at Time of Discharge 1. Acute renal failure, poa, improving 2. mild transaminitis, bilirubinema, POA, stable and chronic 3. metastatic colon cancer, poa, stable 4. HTN,, poa, stable 5. Afib on Coumadin, poa, stable Procedures XRay, CTs & MRIs PROCEDURE: US ABDOMEN DOPPLER, LIMITED INDICATIONS: transaminitis, liver metastatis from colon Liver: Right hepatic lobe mass redemonstrated similar to prior examination measuring 5.8 x 6.9 x 6.3 cm. Left hepatic lobe solid mass also similar to prior examination measuring 6.2 x 5.8 x 4.9 cm. Gallbladder: Gallbladder not well-seen. Biliary ducts: Intrahepatic bile ducts are non-dilated. Extrahepatic bile duct caliber is normal. Normal is 6-7 mm or less in diameter, or 10 mm or less post-cholecystectomy. Pancreas: Visualized portions of the pancreas are sonographically normal. Spleen: Spleen is normal in size and homogeneous in echotexture. Kidneys: Kidneys are normal in size and echotexture. No hydronephrosis or nephrolithiasis. No solid masses. Right inferior pole kidney cyst measuring 2.1 cm. Aorta: Visualized aorta is normal in caliber at less than 3 cm. Iliacs: Proximal common iliac arteries are normal in caliber at less than 2.5 cm. IVC: Intrahepatic inferior vena cava is patent. Miscellaneous: No free abdominal fluid. IMPRESSION: 1. Hepatic metastasis redemonstrated. 2. Gallbladder not well visualized. 3. Right renal cyst. Brief History 76-year-old male, HTN, HLD, paroxysmal atrial fibrillation on Coumadin, mild cognitive impairment, metastatic colon cancer to the liver and lung, diagnosed 3 years ago in 2013, patient has been managed on palliative chemotherapy by . Pt was on FOLFIRI plus Avastin, but due to dz progression, started on FOLFOX plus Avastin on January 25, 2017, finished 1st cycle. patient has normal kidney function, then patient noted to have REMBERTO, cr1.3 on , chemo was canceled and pt received IVF1.5liters in the clinic. Today, pt came to Oncology clinic, repeat labs showed elevated Cr2.6, sent to hospital for further eval by Other labs notable, Cbc 8.1>11.3/31.2<178, CMP 135,3.7, 103, 22, 30/2.58(19/1.30 on ), [id number], ast/alt 367/100 (153/66 in ) Hospital Course: In [facility] ED on 02/25, pt looked comfortable, not a good historian but able to answer questions. He has been eating, drinking well. he developed runny nose a week ago, denied sore throat, cough, sputum. He also c/o mild fullness on his belly, however, able to eat well, appetite has not changed, denied n/v/c, but he had loose stools since this AM, 3-4 times. He denied dizziness, thirsty, chest pain, sob, sick contacts. States he is always cold. Says he takes all his meds as he supposed to. He currently lives with his . Over the weekend, his creatinine has been improving with hydration and Nephrology has seen him and made recommendations. Hospital Course 1. Acute renal failure, poa, improving -felt to be secondary to prerenal azotemia,patient will be discharged home today creatinine has come own to 1.38. -need BMP done within a week -continue all home medications except we will discontinue the losartan for now 2. mild transaminitis, bilirubinema, POA, stable and chronic -likely due to underling liver metastasis, mildly worsened from baseline. viral hep panel ngtd 3. metastatic colon cancer poa, stable, 4. HTN, -hold losartan for now -continue metoprolo and kcl and Hydrdiural 5. Afib on Coumadin, continue per pharmacy dispo:likely tomorrow home diet:general dvt ppx:SCD DNR, DNI, pt was interested in having further discussion about GOC, establish the goal, it's unclear how much pt understands given cognitive dysfunction. reportedly pt has daughter oncology nurse at [place], who is involved in his care. Exam Vital Signs (Last) Date Time Temp Pulse Resp B/P Pulse Ox O2 Delivery O2 Flow Rate FiO2 6/6/17 10:11 60 03/01/17 09:28 36.4 16 104/70 98 Room Air Exam Skin; no rash HENT; no active lesion, adequate hydration CV; no murmur or gallop Resp; clear anteriorly GI; soft non acute non tender Test 02/25/17 20:08 02/26/17 03:50 02/26/17 16:57 02/27/17 05:00 Hold Blue Top Tube Received (Received) Hold [place] Top Tube Received (Received) White Blood Count 5.7th/mm3 (3.8-10.1) Red Blood Count 3.67mil/mm3 (4.40-5.80) Hemoglobin 11.0g/dL (13.8-17.2) Hematocrit 29.9% (41.0-50.0) Mean Corpuscular Volume 81.5fL (81-100) Mean Corpuscular Hemoglobin 30.0pg (27.0-35.0) Mean Corpuscular Hemoglobin Concent 36.8% (32.0-37.0) Red Cell Distribution Width 17.5% (12.3-15.4) Platelet Count 162bil/L (150-400) Neutrophils (%) (Auto) 58.4% (40-74) Lymphocytes (%) (Auto) 16.3% (14-46) Monocytes (%) (Auto) 22.7% (4-12) Eosinophils (%) (Auto) 2.1% (0-5) Basophils (%) (Auto) 0.3% (0-3) Hepatitis A IgM Antibody Negative (Negative) Hepatitis B Surface Antigen Negative (Negative) Hepatitis B Core IgM Antibody Negative (Negative) Hepatitis C Antibody 0.1s/co ratio (0.0-0.9) Hepatitis C Comment Comment (.) Urine Color Yellow (YELLOW) Urine Appearance Turbid (CLEAR,HAZY) Urine pH 5.0 (5.0-8.0) Urine Specific [place] 1.020 (1.003-1.035) Urine Protein 100mg/dL (NEG,TRACE) Urine Glucose (UA) Negativemg/dL (NEGATIVE) Urine Ketones Negativemg/dL (NEGATIVE) Urine Occult Blood Large (NEGATIVE) Urine Nitrite Negative (NEGATIVE) Urine Bilirubin Negative (NEGATIVE) Urine Urobilinogen Normalmg/dL (NORMAL) Urine Leukocyte Esterase Negative (NEGATIVE) Urine RBC 0-2/hpf (0-2) Urine WBC 0-5/hpf (0-5) Urine Epithelial Cells Occasional/hpf (NONE-MOD) Urine Crystals Amorphous urates (NONE Urine Bacteria Moderate/hpf (NONE-FEW) Urine Hyaline Casts None/lpf (NONE) Urine Granular Casts 5-20 (NONE SEEN) Urine Waxy Casts None seen (NONE SEEN) Urine Red Blood Cell Casts None seen (NONE SEEN) Urine White Blood Cell Casts None seen (NONE SEEN) Urine Mucus None seen (None Seen) Urine Trichomonas None seen (NONE SEEN) Urine Yeast None (NONE SEEN) Urinalysis Comment None Urine Culture Reflexed Indicated Urine Random Creatinine 109mg/dL (22-328) Urine Random Total Protein 332mg/dL (0-15) Direct Bilirubin 1.8mg/dL (0.0-0.3) Test 02/28/17 05:25 03/01/17 06:15 Phosphorus Level 2.2mg/dL (2.5-4.9) Magnesium Level 1.8mg/dL (1.6-2.6) Total Bilirubin 2.8mg/dL (0.0-1.2) Aspartate Amino Transf (AST/SGOT) 375U/L (0-50) Alanine Aminotransferase (ALT/SGPT) 92U/L (0-44) Alkaline Phosphatase 758U/L (25-160) Total Protein 6.2g/dL (6.4-8.4) Albumin 2.1g/dL (3.4-5.0) Prothrombin Time 22.7sec (8.1-12.5) Prothromb Time International Ratio 2.09ratio Sodium Level 141mEq/L (134-144) Potassium Level 3.6mEq/L (3.5-5.2) Chloride Level 106mEq/L (97-108) Carbon Dioxide Level 20mmol/L (18-29) Blood Urea Nitrogen 15mg/dL (8-27) Creatinine 1.38mg/dL (0.76-1.27) Estimat Glomerular Filtration Rate 53mL/min (>59) Glucose Level 86mg/dL (60-99) Calcium Level 8.4mg/dL (8.5-10.1) Discharge Medications Discharge Medications Atorvastatin (Lipitor) 80 Mg Tablet 80 MG PO DAILY (Reported) Chlorthalidone (Chlorthalidone) 25 Mg Tablet 25 MG PO DAILY (Reported) Cholecalciferol (Vitamin D3) (Vitamin D3) 2,000 Unit Capsule 2,000 UNIT PO BID ( Reported) Fluticasone Propionate (Flonase Allergy Relief) 50 Mcg/Actuation [place].susp 9.9 ML NS prn (Reported) Losartan Potassium (Losartan Potassium) 50 Mg Tablet 25 MG PO DAILY (Reported) Metoprolol Succinate ER (Metoprolol Succinate ER) 50 Mg Tab.er.24h 75 MG PO BID (Reported) Oxycodone ER (Oxycontin) 10 Mg Tab.er.12h 10 MG PO BID (Reported) Potassium Chloride (Potassium Chloride) 10 Meq Capsule.er 40 MEQ PO DAILY ( Reported) TAKE WITH FOOD Warfarin Sodium (Warfarin Sodium) 4 Mg Tablet 4 MG PO DAILY (Reported) oxyCODONE (oxyCODONE) 5 Mg Tablet 10 MG PO BID (Reported) As needed Docusate Sodium (Docusate Sodium) 250 Mg Capsule 250 MG PO DAILY PRN PRN For Constipation (Reported) Hydrocodone-Acetaminophen 7.5-325 mg (Hydrocodone-Acetaminophen 7.5-325 mg) 1 Each Tablet 1-2 TABLET PO Q6H PRN PRN For Pain (Reported) Nitroglycerin SL (Nitrostat) 0.4 Mg Tab.subl 0.4 MG SL Q5MIN PRN PRN For Chest Pain (Reported) Prochlorperazine Maleate (Compazine) 10 Mg Tablet 10 MG PO Q4 PRN PRN For Nausea (Reported) Followup Plan Follow-up plan Please follow up with your primary care provider at the [facility], please have them repeat the blood test (BMP), to check your potassium and renal function within the next 5-6 days. Also follow up with your oncologist. Discharge Diet: Low fat, Low Sodium, Heart Healthy Discharge Activity: Limited until seen by PCP Follow-up with PCP in: 1 week Time spent 33 minutes time spent discharging patient so far today. Marvel Lorenzo MD Mar 01, 2017 11:09
--- NOTE | 2017-03-01 13:28 | PCM.PHAPRO ---
Progress Increased creatinine WARFARIN DOSING PER PHARMACY -Feb INR 2.09 -0.41 Dose 4 Will initiate home dose of warfarin 4mg PO [facility] will continue to monitor, thank you Enid Reyes PharmD Mar 01, 2017 13:28
--- NOTE | 2017-03-01 13:50 | NUR ---
Discharge Pt discharged from unit, accompanied by his daughter. Port de-accessed by IV therapy. Pt understands that [facility] will [facility] next few days and reschedule his chemotherapy appt. Provided with information on signs to watch for and ways to prevent kidney damage. Taken off the floor in a wheelchair with his belongings.
--- NOTE | 2017-03-01 14:13 | NUR ---
Social Work: Readiness for Discharge/Discharge D: EMR reviewed. Pt is on day 4 of hospitalization. Pt is medically stable for discharge. Pt has progressed to PT recommending outpt PT. SW reviewed HH order with , MD feels that HH is no longer medically indicated at this time. Pt to discharge home with daughter to transport via POV. No discharge needs identified. A: Pt who will return home and is independent at baseline. P: HH is no longer medically indicated. Pt to discharge home with daughter to transport via POV. No discharge needs identified. Matilde Fonseca, WIRELESS FIELD TECHNICIAN
== END 2017-03-01 13:50 | disposition home or self-care (01) | DRG 683 ==
LOC: OSC 14:14
PROVIDERS: ADMIT Internal Medicine; ATTEND Internal Medicine
DX: N17.9 Acute kidney failure, unspecified (principal); C78.7 Secondary malignant neoplasm of liver and intrahepatic bile duct; C78.00 Secondary malignant neoplasm of unspecified lung; I48.0 Paroxysmal atrial fibrillation; I10 Essential (primary) hypertension; E78.5 Hyperlipidemia, unspecified; Z66 Do not resuscitate; R62.7 Adult failure to thrive; R74.0 Nonspecific elevation of levels of transaminase and lactic acid dehydrogenase [LDH]; Z51.5 Encounter for palliative care; Z95.0 Presence of cardiac pacemaker; Z85.038 Personal history of other malignant neoplasm of large intestine; Z79.01 Long term (current) use of anticoagulants